=== PATIENT | male | born 1970 | race Caucasian/White ===

== ENCOUNTER 2022-08-20 08:31 | Outpatient (CLI) | payer OTHER, SELFPAY ==
[2022-08-20 13:46] LABS: Chloride* 105 mmol/L (96-114); Potassium* 4.1 mmol/L (3.6-5.1); Sodium* 139 mmol/L (135-149)
[2022-08-20 13:48] LABS: Cholesterol* 218 mg/dL (90-199)
[2022-08-20 13:49] LABS: Blood Urea Nitrogen* 29 mg/dL (7-30); Calcium* 9.2 mg/dL (8.4-10.6); Carbon Dioxide* 28 mmol/L (20-32); Creatinine* 0.9 mg/dL (0.5-1.5); Estimated Glomerular Filt Rate 103 ml/min; Glucose* 81 mg/dL (60-115); HDL Cholesterol* 57 mg/dL (>=40)
[2022-08-20 14:21] LABS: PSA Screen* 1.02 ng/mL (0.10-4.00)
== END 2022-08-20 08:32 | disposition home or self-care (01) ==
PROVIDERS: PCP Family Medicine; Visit Provider Family Medicine
DX: Z00.00 Encounter for general adult medical examination without abnormal findings (principal); J30.9 Allergic rhinitis, unspecified; Z12.5 Encounter for screening for malignant neoplasm of prostate; B99.9 Unspecified infectious disease
CPT/HCPCS: 80048; 82465; 83718; 84153

== ENCOUNTER 2022-09-25 07:37 | Outpatient (CLI) | payer OTHER, SELFPAY | END 2022-09-25 07:38 | disposition home or self-care (01) | PROVIDERS: PCP Family Medicine; Visit Provider Internal Medicine | DX: Z12.11 Encounter for screening for malignant neoplasm of colon (principal) | CPT/HCPCS: 45378; J2250; J3010 ==